=== PATIENT | female | born 1985 | race Caucasian/White ===

== ENCOUNTER 2017-06-05 19:47 | Emergency (ER) | payer OTHER ==
[~2017-06-05] VITALS: Ht 160 cm; Wt 168.2 kg
[~2017-06-05 19:47] MED LIST: DEP500A PO; LORA-303 PO; OLAN10TA3 PO; OLAN5TAB4 PO; [UNRECOGNIZED DRUG - CODE] PO
[2017-06-05 20:00] VITALS: BP 124/84; PULSE 103; RESP 18; O2SAT 92
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
[2017-06-05] MEDS ORDERED: Albuterol-Ipratropium 3 mL Inhalation Solution NEB ONE (20:20)
[2017-06-05] MEDS ORDERED: Albuterol 2.5 mg/3 mL Inhalation Solution NEB ONE (20:20)
[2017-06-05] MEDS ORDERED: LORazepam 0.5 mg Tablet PO ONE (20:35)
--- NOTE | 2017-06-05 20:55 | DRSVH ---
PROCEDURE: X-RAY CHEST, TWO VIEWS ([id number]) INDICATIONS: SHORTNESS OF BREATH, wheezing TECHNIQUE: 2 views of the chest were acquired. COMPARISON: None. FINDINGS: Surgical changes and devices: None. Lungs and pleura: No pleural effusions or pneumothorax. Lungs are clear. Mediastinum: Mediastinal contours are normal. Heart size is normal. Bones and chest wall: No suspicious bony abnormalities. Soft tissues appear unremarkable. IMPRESSION: No radiographic evidence of acute cardiopulmonary pathology. Dictated by: Fito Carr M.D. on 06/05/2017 at 20:53 Approved by: Fito Carr M.D. on 06/05/2017 at 20:53
[2017-06-05 21:04] LABS: BASOPHILS % (AUTO) 0.3 % (0-3); EOSINOPHILS % (AUTO) 1.3 % (0-5); MONOCYTES % (AUTO) 7.6 % (4-12); Mean Corpuscular Hemoglobin 28.9 pg (27.0-35.0); NEUTROPHILS % (AUTO) 65.6 % (40-74); Platelet Count 221 bil/L (150-400)
[2017-06-05] MEDS ORDERED: Albuterol HFA 60 Puff 8 Gm Inhaler INHALATION ONE (22:10)
[2017-06-05 22:16] VITALS: BP 144/102; PULSE 101; RESP 33; O2SAT 82
[2017-06-05] MEDS ORDERED: Albuterol HFA 60 Puff 8 Gm Inhaler INHALATION PRN (22:20)
[2017-06-05] MEDS ORDERED: Albuterol HFA 60 Puff 8 Gm Inhaler INHALATION SCH (22:30)
[2017-06-05] MEDS ORDERED: PRE20 PO (23:10)
[2017-06-05] MEDS ORDERED: ZIT250 PO (23:10)
[2017-06-05 23:15] VITALS: PULSE 102; RESP 24; O2SAT 95
[2017-06-05] MEDS ORDERED: predniSONE 20 mg Tablet PO ONE (23:15)
== END 2017-06-05 23:16 | disposition home or self-care (01) ==
LOC: SED 19:47
DX: J45.901 Unspecified asthma with (acute) exacerbation (principal); R09.02 Hypoxemia; J40 Bronchitis, not specified as acute or chronic; F17.200 Nicotine dependence, unspecified, uncomplicated
CPT/HCPCS: 36415; 71020; 80053; 81025; 85025; 99284; J7613; J7620